=== PATIENT | female | born 1980 | race Caucasian/White ===

== ENCOUNTER 2020-02-04 21:05 | Inpatient (IN) | payer MEDICAID ==
[2020-02-04] MEDS ORDERED: ALBUTEROL SULFATE 0.083% NEB 2.5 MG/3 ML AMPUL NEB ONE (21:40)
[2020-02-04] MEDS ORDERED: IPRATROPIUM/ALBUTEROL 0.5-2.5 MG/3 ML AMPUL NEB ONE (21:40)
[2020-02-04] MEDS ORDERED: METHYLPREDNISOLONE INJ 125 MG/2 ML SDV IM ONE (21:40)
--- NOTE | 2020-02-04 21:43 | ER Document Report ---
ED Medical Screen (RME) - General Chief Complaint: Fever Stated Complaint: FEVER Time Seen by Provider: 02/04/20 21:37 Primary Care Provider: MEHREEN MENDENHALL [Primary Care Provider] - Follow up as needed - HPI Notes: 02/04/20 21:41 Patient is a 39-year-old female with a history of tobacco abuse who presents complaining of productive cough, fever, body ache, upper back pain that began 3 days ago. She is able to eat and drink without difficulty. She is urinating normally. She has been using Tylenol and Motrin for her symptoms. I have treated and performed a rapid initial assessment of this patient. A comprehensive ED assessment and evaluation of the patient, analysis of test results and completion of medical decision making process will be conducted by additional ED providers. PHYSICAL EXAMINATION: GENERAL: Well-appearing, well-nourished and in no acute distress. A&Ox4. Answers questions appropriately. Lungs: Wheezing bilaterally primarily in expiration. No retractions. - Related Data Allergies/Adverse Reactions: Penicillins Allergy (Verified 02/04/20 21:37) Physical Exam - Vital signs Vitals: Temp Pulse Resp BP Pulse Ox 98.1 F 107 H 22 H 106/67 100 02/04/20 21:20 02/04/20 21:20 02/04/20 21:20 02/04/20 21:20 02/04/20 21:20 Course - Vital Signs Vital signs: Temp Pulse Resp BP Pulse Ox 98.1 F 107 H 22 H 106/67 100 02/04/20 21:20 02/04/20 21:20 02/04/20 21:20 02/04/20 21:20 02/04/20 21:20 Doctor's Discharge - Discharge Referrals: MEHREEN MENDENHALL [Primary Care Provider] - Follow up as needed
--- NOTE | 2020-02-04 22:27 | RADIOLOGY REPORT (SQ) ---
EXAM DESCRIPTION: XR CHEST 2 VIEWS COMPLETED DATE/TME: 02/04/2020 21:37 CLINICAL HISTORY: 39 years, Female, cough COMPARISON: 02/16/2011 chest NUMBER OF VIEWS: 2 TECHNIQUE: 2 views of the chest LIMITATIONS: None. FINDINGS: The heart size is normal. Airspace opacities of the right upper lobe and right perihilar region concerning for pneumonia. No pneumothorax. Small right pleural effusion seen on the lateral view IMPRESSION: Right upper/right perihilar pneumonia. Small right effusion. Follow-up recommended copyright 2010 [employer]- All Rights Reserved
[2020-02-04 23:45] LABS: ABSOLUTE EOSINOPHILS # (AUTO) 0.1 10^3/uL (0.0-0.6); ABSOLUTE LYMPHOCYTES (AUTO) 1.8 10^3/uL (0.5-4.7); ABSOLUTE MONOCYTES (AUTO) 0.6 10^3/uL (0.1-1.4); ABSOLUTE NEUT (AUTO) 12.2 10^3/uL (1.7-8.2); BASOPHILS % (AUTO) 0.1 % (0-2); EOSINOPHILS % (AUTO) 0.4 % (0-6); HEMATOCRIT 33.6 % (36.0-47.0); HEMOGLOBIN 11.5 g/dL (12.0-15.5); LYMPHOCYTES % (AUTO) 12.4 % (13-45); MEAN CORPUSCULAR HEMOGLOBIN 30.3 pg (27.0-33.4); MEAN CORPUSCULAR HGB CONC 34.2 g/dL (32.0-36.0); MEAN CORPUSCULAR VOLUME 89 fl (80-97); MONOCYTES % (AUTO) 4.3 % (3-13); PLATELET COUNT 174 10^3/uL (150-450); RED BLOOD COUNT 3.79 10^6/uL (3.72-5.28); SEGMENTED NEUTROPHILS % (AUTO) 82.8 % (42-78); TOTAL CELLS COUNTED % (AUTO) 100 %; WHITE BLOOD COUNT 14.8 10^3/uL (4.0-10.5)
[2020-02-04 23:53] LABS: ALKALINE PHOSPHATASE 95 U/L (38-126); ANION GAP 12 (5-19); ASPARTATE AMINO TRANSFERASE 28 U/L (14-36); BILIRUBIN,DIRECT 0.4 mg/dL (0.0-0.4); BILIRUBIN,TOTAL 0.5 mg/dL (0.2-1.3); BLOOD UREA NITROGEN 21 mg/dL (7-20); CALCIUM 8.9 mg/dL (8.4-10.2); CARBON DIOXIDE 27 mmol/L (22-30); CHLORIDE 100 mmol/L (98-107); GLUCOSE 124 mg/dL (75-110); TOTAL PROTEIN 8.3 g/dL (6.3-8.2)
[2020-02-04 23:56] LABS: POTASSIUM 2.8 mmol/L (3.6-5.0)
[2020-02-05] MEDS ORDERED: LEVOFLOXACIN 750 MG TABLET PO ONE (00:20)
[2020-02-05] MEDS ORDERED: NORMAL SALINE 1000 ML 1,000 ML IV ONE (00:21)
[2020-02-05] MEDS ORDERED: POTASSIUM CHLORIDE 20 MEQ PACKET PO ONE (00:22)
[2020-02-05] MEDS ORDERED: POTASSI CL 20 MEQ/50 ML RIDER 20 MEQ/50 ML RTUPB IV ONE (00:22)
[2020-02-05] MEDS ORDERED: KETOROLAC TROMETHAMINE INJ/PF 30 MG/1 ML SDV IV ONE (00:23)
[2020-02-05] MEDS ORDERED: METHYLPREDNISOLONE INJ 125 MG/2 ML SDV ONE (00:31)
--- NOTE | 2020-02-05 00:37 | ER Document Report ---
ED General - General Chief Complaint: Breathing Difficulty Stated Complaint: FEVER Time Seen by Provider: 02/04/20 21:37 Primary Care Provider: MEHREEN MENDENHALL [NO LOCAL MD] - Follow up as needed TRAVEL OUTSIDE OF THE [place] IN LAST 30 DAYS: No - HPI Notes: 39-year-old female presenting with generalized weakness, muscular cramping, fatigue and cough productive of white sputum past 3 days. Subjective fever at home. Dyspnea upon exertion. Patient smokes about half pack of cigarettes per day. Patient has a history of IV drug abuse using heroin regularly up until October when she started outpatient Suboxone therapy under supervision of [facility]. She admits that she has injected herself with heroin at least once within the last 1 week. Patient admits that she is not eating well. She denies vomiting or diarrhea. She is on no prescription medication other than the Suboxone is not regularly being followed by physician other than her detox center. - Related Data Allergies/Adverse Reactions: Penicillins Allergy (Verified 02/04/20 21:37) Home Medications: CLONIDINE Past Medical History - General Information source: Patient - Social History Smoking Status: Current Every Day Smoker Family History: Reviewed & Not Pertinent Patient has suicidal ideation: No Patient has homicidal ideation: No Review of Systems - Review of Systems Notes: Constitutional: As per HPI. HENT: Negative for sore throat. Eyes: Negative for visual changes. Cardiovascular: As per HPI. Respiratory: As per HPI. Gastrointestinal: Negative for abdominal pain, vomiting or diarrhea. Genitourinary: Negative for dysuria. Musculoskeletal: Generalized muscular cramping. Skin: Negative for rash. Neurological: Negative for headaches, focal weakness or numbness. 10 point ROS negative except as marked above and in HPI. Physical Exam - Vital signs Vitals: Temp Pulse Resp BP Pulse Ox 98.1 F 107 H 22 H 106/67 100 02/04/20 21:20 02/04/20 21:20 02/04/20 21:20 02/04/20 21:20 02/04/20 21:20 - Notes Notes: GENERAL: Slender somewhat chronically ill-appearing female approximately stated age who is coughing. SKIN: Good turgor no rashes. HEAD: Normocephalic atraumatic. EYES: PERRLA. EOMI. Conjunctivae and sclerae clear. EARS: CANALS AND TMS CLEAR. NOSE: CLEAR. MOUTH: Moist mucosa. Good dentition. No stridor or edema. No drooling. NECK: Supple. No masses or thyromegaly. No adenopathy. Carotids 2+ without bruits. No JVD. BACK: Symmetrical with diffuse. CHEST: Scattered rhonchi and wheezes bilaterally. HEART: Regular rhythm. No murmur gallop or rub. ABDOMEN: Soft nontender without masses, organomegaly or rebound. Bowel sounds normally active. No bruits. GENITALIA: Deferred. EXTREMITIES: No edema. No calf tenderness. Cap refill less than 1.5 seconds. Dorsalis pedis and posterior tibial pulses 3+ and symmetrical. NEUROLOGICAL: GCS 15. Alert and oriented x3. Normal gait. Fluent speech. Cranial nerves II through XII intact. Sensorimotor and cerebellar normal. Normal tone. PSYCHIATRIC: Appropriate affect. Course - Re-evaluation Re-evalutation: 02/05/20 02:26 Patient is clinically dehydrated and she has a substantial pneumonia in her r ight lung with associated small pleural effusion. She is also an IV drug abuser. Her potassium level is low around 2.8. Magnesium is normal. White count was elevated around 15,000. She is tachycardic. Patient has received IV normal saline. Blood cultures were pulled. Patient was given IV Levaquin and she has been given supplemental potassium orally and IV. Findings discussed with the on-call hospitalist Dr. Campuzano who will admit. - Vital Signs Vital signs: Temp Pulse Resp BP Pulse Ox 98.7 F 123 H 19 114/59 L 99 02/05/20 01:21 02/05/20 01:21 02/05/20 01:21 02/05/20 01:21 02/05/20 01:21 - Laboratory Result Diagrams: 02/04/20 23:05 02/04/20 23:05 Laboratory results interpreted by me: 02/04/20 02/04/20 23:05 23:05 WBC 14.8 H Hgb 11.5 L Hct 33.6 L RDW 15.0 H Lymph % (Auto) 12.4 L Absolute Neuts (auto) 12.2 H Seg Neutrophils % 82.8 H Potassium 2.8 L* BUN 21 H Glucose 124 H Total Protein 8.3 H Discharge - Discharge Clinical Impression: IV drug abuse, Hypokalemia, Dehydration Pneumonia Qualifiers: Pneumonia type: due to unspecified organism Laterality: right Lung location: unspecified part of lung Qualified Code(s): J18.9 - Pneumonia, unspecified organism Condition: Fair Disposition: ADMITTED INPATIENT Admitting Provider: Tatianna Unit Admitted: Telemetry Referrals: LOCALMD,NO [NO LOCAL MD] - Follow up as needed
[2020-02-05 01:32] LABS: A TYPE INFLUENZA AG NEGATIVE (NEGATIVE); B INFLUENZA AG NEGATIVE (NEGATIVE)
[2020-02-05 01:57] LABS: URINE AMPHETAMINES SCREEN NEGATIVE; URINE BARBITURATES SCREEN NEGATIVE; URINE BENZODIAZEPINES SCREEN NEGATIVE; URINE COCAINE SCREEN NEGATIVE; URINE MARIJUANA (THC) SCREEN NEGATIVE; URINE METHADONE SCREEN NEGATIVE; URINE PHENCYCLIDINE SCREEN NEGATIVE
[2020-02-05] MEDS ORDERED: ONDANSETRON 4 MG TAB.RAPDIS PO PRN (03:04)
[2020-02-05] MEDS ORDERED: IPRATROPIUM/ALBUTEROL 0.5-2.5 MG/3 ML AMPUL NEB PRN (03:04)
[2020-02-05] MEDS ORDERED: ACETAMINOPHEN 650 MG SUPP.RECT PR PRN (03:04)
[2020-02-05] MEDS ORDERED: ONDANSETRON HCL INJ/PF 4 MG/2 ML SDV IV PRN (03:04)
[2020-02-05] MEDS ORDERED: RINGERS SOLUTION,LACTATED 1,000 ML IV SCH (03:15)
--- NOTE | 2020-02-05 03:26 | PDOC H&P ---
History of Present Illness Admission Date/PCP: 02/05/20 02:46 History of Present Illness: MARCH Gwen CALDERA is a 39 year old female with past medical history of IV drug abuse who presents after 4-day history of progressive fevers up to 104, productive cough, malaise. Patient states she last used IV heroin a few days prior to admission and follows with a Suboxone clinic stating she takes 4 mg of Suboxone in the morning and 4 mg at night. Chest x-ray here showed significant right upper and perihilar infiltrates consistent with pneumonia. WBC elevated to 14.8 and potassium down to 2.8. Started on IV Levaquin in the ED along with IV fluids and potassium replacement. Past Medical History Psychiatric Medical History: Reports: Substance Abuse Past Surgical History Past Surgical History: Reports: Section - x2 Social History Information Source: Patient Lives with: Spouse/Significant other Smoking Status: Current Every Day Smoker Frequency of Alcohol Use: None Hx Recreational Drug Use: Yes Drugs: Heroin - Advance Directive Resuscitation Status: Full Code Surrogate healthcare decision maker:: Boyfriend Family History Family History: Reviewed & Not Pertinent Parental Family History Reviewed: Yes Children Family History Reviewed: Yes Sibling(s) Family History Reviewed.: Yes Medication/Allergy Allergies/Adverse Reactions: Penicillins Allergy (Verified 02/04/20 21:37) Review of Systems All systems: reviewed and no additional remarkable complaints except as stated - See HPI for full ROS, otherwise negative Constitutional: PRESENT: chills, fever(s) Respiratory: PRESENT: cough, sputum Physical Exam Vital Signs: Temp Pulse Resp BP Pulse Ox 98.7 F 123 H 19 114/59 L 99 02/05/20 01:21 02/05/20 01:21 02/05/20 01:21 02/05/20 01:21 02/05/20 01:21 Intake & Output 02/03/20 02/04/20 02/05/20 06:59 06:59 06:59 Weight 61 kg General appearance: PRESENT: no acute distress, cooperative, well-developed, well-nourished Head exam: PRESENT: atraumatic, normocephalic Eye exam: PRESENT: conjunctiva pink Mouth exam: PRESENT: moist Respiratory exam: PRESENT: crackles, rhonchi. ABSENT: accessory muscle use, wheezes Cardiovascular exam: PRESENT: RRR. ABSENT: diastolic murmur, rubs, systolic murmur GI/Abdominal exam: PRESENT: normal bowel sounds, soft. ABSENT: distended, guarding, mass, organolmegaly, rebound, tenderness Rectal exam: PRESENT: deferred Musculoskeletal exam: PRESENT: ambulatory Neurological exam: PRESENT: alert, awake, oriented to person, oriented to place, oriented to time, oriented to situation Psychiatric exam: PRESENT: appropriate affect, normal mood Skin exam: PRESENT: dry, intact, warm Results Laboratory Results: 02/04/20 23:05 02/04/20 23:05 02/04/20 02/04/20 02/04/20 23:05 23:05 23:05 WBC 14.8 H RBC 3.79 Hgb 11.5 L Hct 33.6 L MCV 89 MCH 30.3 MCHC 34.2 RDW 15.0 H Plt Count 174 Seg Neutrophils % 82.8 H Sodium 138.8 Potassium 2.8 L* Chloride 100 Carbon Dioxide 27 Anion Gap 12 BUN 21 H Creatinine 0.65 Est GFR ( Amer) > 60 Glucose 124 H Calcium 8.9 Magnesium 2.3 Total Bilirubin 0.5 AST 28 Alkaline Phosphatase 95 Total Protein 8.3 H Albumin 4.0 Serum HCG, Qual 02/04/20 23:05 WBC RBC Hgb Hct MCV MCH MCHC RDW Plt Count Seg Neutrophils % Sodium Potassium Chloride Carbon Dioxide Anion Gap BUN Creatinine Est GFR ( Amer) Glucose Calcium Magnesium Total Bilirubin AST Alkaline Phosphatase Total Protein Albumin Serum HCG, Qual NEGATIVE Impressions: Chest X-Ray 02/04/20 21:37 IMPRESSION: Right upper/right perihilar pneumonia. Small right effusion. Follow-up recommended copyright 2010 [employer]- All Rights Reserved Assessment and Plan - Diagnosis (1) Community acquired pneumonia Qualifiers: Laterality: right Lung location: upper lobe of lung Qualified Code(s): J18.9 - Pneumonia, unspecified organism Is this a current diagnosis for this admission?: Yes Plan: Suspect gram-negative Levaquin IV, transition to oral at discharge IV fluids Respiratory culture Blood cultures Bronchial hygiene Duo nebs as needed (2) Sepsis Qualifiers: Sepsis type: sepsis due to unspecified organism Sepsis acute organ dysfunction status: without acute organ dysfunction Qualified Code(s): A41.9 - Sepsis, unspecified organism Is this a current diagnosis for this admission?: Yes Plan: Due to community-acquired pneumonia Fluids, antibiotics as above (3) Hypokalemia Is this a current diagnosis for this admission?: Yes Plan: Unclear etiology Replete with oral potassium, can also use IV if needed and patient can tolerate it (4) IV drug abuse Is this a current diagnosis for this admission?: Yes Plan: Follows with Suboxone clinic Continued home Suboxone dose 4 mg a.m. and 4 mg p.m. Last used heroin 1 week ago per patient - Time Time Spent with patient: 35 or more minutes Smoking Cessation Education: 3 to 10 minutes Medications reviewed and adjusted accordingly: Yes Anticipated discharge: Home - Inpatient Certification Medical Necessity: Significant Comorbidiites Make Outpatient Treatment Too Risky, Need Close Monitoring Due to Risk of Patient Decompensation, Need For IV Fluids, Need for IV Antibiotics
--- NOTE | 2020-02-05 03:26 | ADVANCED CARE ---
- Diagnosis (1) Community acquired pneumonia Diagnosis Current: Yes (2) Sepsis Diagnosis Current: Yes (3) Hypokalemia Diagnosis Current: Yes (4) IV drug abuse Diagnosis Current: Yes Resuscitation Status: Full Code Discussion: All aspects of CODE STATUS discussed including chest compressions, cardioversion, intubation and patient states she would like to be full code. She states she would like her boyfriend Maurilio Armando to be her M POA Time Spent: 17 minutes
[2020-02-05 04:05] LABS: ANION GAP 6 (5-19); BLOOD UREA NITROGEN 15 mg/dL (7-20); CALCIUM 8.2 mg/dL (8.4-10.2); CARBON DIOXIDE 24 mmol/L (22-30); CHLORIDE 107 mmol/L (98-107); GLUCOSE 151 mg/dL (75-110); POTASSIUM 3.5 mmol/L (3.6-5.0)
[2020-02-05] MEDS ORDERED: INFLUENZA QUAD (6MOS+) 2019-20 VAC 0.5 ML SYR IM ONE (05:15)
[2020-02-05] MEDS ORDERED: ENOXAPARIN SODIUM INJ 40 MG/0.4 ML DISP.SYRIN SUBCUT SCH (10:00)
[2020-02-05] MEDS ORDERED: VANCOMYCIN HCL INJ 1000 MG VIAL IV SCH (10:00)
[2020-02-05] MEDS ORDERED: DOCUSATE SODIUM 100 MG CAPSULE PO SCH (10:00)
[2020-02-05] MEDS: VANCOMYCIN HCL 750 MG in DEXTROSE 5%-WATER 250 ML IV SCH ×2 (10:15→18:37)
[2020-02-05] MEDS: POTASSIUM CHLORIDE 20 MEQ PACKET PO SCH ×2 (10:16→21:39)
[2020-02-05] MEDS ORDERED: BUPRENORPHINE HCL 2 MG SUBLINGUAL TABLET SL SCH (18:00)
[2020-02-06 00:19] VITALS: BP 110/84
[2020-02-06 06:36] LABS: HEPATITS B SURFACE ANTIGEN Negative (Negative)
--- NOTE | 2020-02-06 07:31 | Left Against Medical Advice ---
Against Medical Advice Admission Date/Time: 02/05/20 02:46 Primary Care Provider: Date of Patient Emigration: 02/06/20 - Diagnosis: (1) Community acquired pneumonia Is this a current diagnosis for this admission?: Yes (2) Hypokalemia Is this a current diagnosis for this admission?: Yes (3) IV drug abuse Is this a current diagnosis for this admission?: Yes (4) Sepsis Is this a current diagnosis for this admission?: Yes (5) Gram-positive cocci bacteremia Is this a current diagnosis for this admission?: Yes - Summary: Summary: Please see Admission and Progress Notes as well. DERIK CALDERA is a 39 F, who LEFT AGAINST MEDICAL ADVICE. The Patient was admitted on 02/05/20 02:46. I received a call from the nurses reporting that the patient wishes to leave AGAINST MEDICAL ADVICE. Evidently the other hospital will allow her children to visit and might be closer to home. I asked the nurse to remind the patient that 1 of the blood culture bottles had just turned positive with gram-positive cocci in clusters. She called me back and reported that this information was conveyed to the patient but the patient decided to leave AGAINST MEDICAL ADVICE anyway.
[2020-02-06] MEDS ORDERED: LEVOFLOXACIN 750 MG/D5W RTU 750 MG/150 ML RTUPB IV SCH (10:00)
[2020-02-06] MEDS ORDERED: FERROUS SULFATE 325 MG TABLET PO SCH (10:00)
[2020-02-07 11:50] LABS: HEPATITIS C VIRUS ANTIBODY >11.0 s/co ratio (0.0-0.9)
--- NOTE | 2020-02-07 16:29 | Progress Note ---
Provider Note Provider Note: patient's contact number called multiple times, now [phone], [phone], and [phone], and no responses. I am unable to reach patient regarding sputum cultures from February 04 which currently yielding MRSA, and yeast
== END 2020-02-06 01:32 | disposition left against medical advice (07) | DRG 871 ==
LOC: ER 21:05 → EH 02-05 02:46 → 3S 02-05 04:31
PROVIDERS: ADMIT Internal Medicine; ATTEND Internal Medicine
DX: A41.9 Sepsis, unspecified organism (principal); J18.9 Pneumonia, unspecified organism; F11.20 Opioid dependence, uncomplicated; E86.0 Dehydration; E87.6 Hypokalemia; F17.210 Nicotine dependence, cigarettes, uncomplicated; B95.62 Methicillin resistant Staphylococcus aureus infection as the cause of diseases classified elsewhere
CPT/HCPCS: 36415; 71046; 80048; 80053; 80074; 80307; 83735; 84703; 85025; 86701; 87040; 87070; 87077; 87186; 87205; 87804; 94640; 96365; 96366; 96372; 96375; 99284; J0571; J1650; J1885; J2930; J3370; J3480; J3490; J7030; J7060; J7620

== ENCOUNTER 2020-10-15 21:12 | Emergency (ER) | payer MEDICAID ==
--- NOTE | 2020-10-15 21:43 | ER Document Report ---
ED Medical Screen (RME) - General Chief Complaint: Skin Problem Stated Complaint: INFECTION ON HAND Time Seen by Provider: 10/15/20 21:32 Mode of Arrival: Ambulatory Information source: Patient Notes: 40-year-old female presented to ED for cellulitis from the hand all the way to well past the elbow. She does have swelling to the hand wrist and elbow. Have ordered blood cultures urine x-ray of the wrist and elbow. Patient states she does smoke 1/2 pack a day does not drink alcohol does smoke weed and is on Suboxone for addiction. She states she does not use any kind of IV injected gemma gs at this time. She states she had an abscess on her wrist and she took a knife and opened it yesterday and that is when all the swelling started. Patient is alert oriented respirations regular nonlabored speaking in full sentences. Have informed the charge nurse that this patient would need blood work and possible IV antibiotics. I have greeted and performed a rapid initial assessment of this patient. A comprehensive ED assessment and evaluation of the patient, analysis of test results and completion of medical decision making process will be conducted by an additional ED providers. TRAVEL OUTSIDE OF THE [place] IN LAST 30 DAYS: No - Related Data Allergies/Adverse Reactions: Penicillins Allergy (Intermediate, Verified 02/05/20 09:03) GENERAL SWELLING Past Medical History Past Surgical History: Reports: Hx Section - x2 Physical Exam - Vital signs Vitals: Temp Pulse Resp BP Pulse Ox 98.4 F 97 20 105/73 99 10/15/20 21:27 10/15/20 21:27 10/15/20 21:27 10/15/20 21:27 10/15/20 21:27 Course - Vital Signs Vital signs: Temp Pulse Resp BP Pulse Ox 98.4 F 97 20 105/73 99 10/15/20 21:27 10/15/20 21:27 10/15/20 21:27 10/15/20 21:27 10/15/20 21:27
--- NOTE | 2020-10-15 22:41 | RADIOLOGY REPORT (SQ) ---
EXAM DESCRIPTION: XR WRIST 3 OR MORE VIEWS COMPLETED DATE/TME: 10/15/2020 22:20 CLINICAL HISTORY: 40 years, Female, Swelling infection COMPARISON: None. NUMBER OF VIEWS: 3 TECHNIQUE: 3 view right wrist LIMITATIONS: None. FINDINGS: Negative for acute fracture or dislocation. Soft tissue swelling along the volar aspect of the wrist. No soft tissue gas. No radiopaque foreign body IMPRESSION: No acute osseous abnormality copyright 2010 [employer]- All Rights Reserved
[2020-10-15 22:48] LABS: ABSOLUTE BASOPHILS # (AUTO) 0.1 10^3/uL (0.0-0.2); ABSOLUTE EOSINOPHILS # (AUTO) 0.2 10^3/uL (0.0-0.6); ABSOLUTE MONOCYTES (AUTO) 1.2 10^3/uL (0.1-1.4); ABSOLUTE NEUT (AUTO) 9.2 10^3/uL (1.7-8.2); BASOPHILS % (AUTO) 0.5 % (0-2); EOSINOPHILS % (AUTO) 1.7 % (0-6); HEMATOCRIT 33.9 % (36.0-47.0); HEMOGLOBIN 11.5 g/dL (12.0-15.5); LYMPHOCYTES % (AUTO) 15.8 % (13-45); MEAN CORPUSCULAR HEMOGLOBIN 29.6 pg (27.0-33.4); MEAN CORPUSCULAR VOLUME 87 fl (80-97); MONOCYTES % (AUTO) 9.2 % (3-13); PLATELET COUNT 385 10^3/uL (150-450); RED CELL DISTRIBUTION WIDTH 13.8 % (11.5-14.0); SEGMENTED NEUTROPHILS % (AUTO) 72.8 % (42-78); TOTAL CELLS COUNTED % (AUTO) 100 %; WHITE BLOOD COUNT 12.6 10^3/uL (4.0-10.5)
--- NOTE | 2020-10-15 22:53 | RADIOLOGY REPORT (SQ) ---
EXAM DESCRIPTION: ELBOW RIGHT OVER 2 VIEWS [employer]: XR ELBOW 3 VIEWS Views: 3 CLINICAL HISTORY: 40 years Female; Swelling infection; cellulitis COMPARISON: None. FINDINGS: Negative for acute fracture, dislocation, or radiopaque foreign body. No joint effusion. Subcutaneous soft tissue edema is noted medial to the joint and proximal ulna. No definite soft tissue air. There is some artifact from overlying material. No lytic bone changes or periosteal reaction. IMPRESSION: 1. Nonspecific soft tissue edema 2. No acute bone findings.
[2020-10-15] MEDS ORDERED: LIDOCAINE 1%/EPINEPHRINE INJ 20 ML VIAL INJ ONE (23:02)
[2020-10-15] MEDS ORDERED: LIDOCAINE 4% CREAM 5 GM TUBE TP ONE (23:03)
[2020-10-15 23:05] LABS: ALKALINE PHOSPHATASE 81 U/L (38-126); ANION GAP 10 (5-19); ASPARTATE AMINO TRANSFERASE 27 U/L (14-36); BILIRUBIN,DIRECT 0.1 mg/dL (0.0-0.4); BILIRUBIN,TOTAL 0.4 mg/dL (0.2-1.3); BLOOD UREA NITROGEN 15 mg/dL (7-20); CALCIUM 9.3 mg/dL (8.4-10.2); CARBON DIOXIDE 26 mmol/L (22-30); CHLORIDE 100 mmol/L (98-107); GLUCOSE 89 mg/dL (75-110); POTASSIUM 3.9 mmol/L (3.6-5.0); TOTAL PROTEIN 7.8 g/dL (6.3-8.2)
[2020-10-15] MEDS ORDERED: HYDROMORPHONE HCL INJ/PF 2 MG/ML AMPULE IM ONE (23:08)
[2020-10-15] MEDS ORDERED: PROMETHAZINE HCL 25 MG TABLET PO ONE (23:08)
--- NOTE | 2020-10-15 23:08 | ER Document Report ---
ED Skin Rash/Insect Bite/Abscs - General Chief Complaint: Abscess Stated Complaint: INFECTION ON HAND Time Seen by Provider: 10/15/20 21:32 Mode of Arrival: Ambulatory TRAVEL OUTSIDE OF THE [place] IN LAST 30 DAYS: No - Related Data Allergies/Adverse Reactions: Penicillins Allergy (Intermediate, Verified 02/05/20 09:03) GENERAL SWELLING Past Medical History - General Information source: Patient - Social History Smoking Status: Current Every Day Smoker Frequency of alcohol use: None Drug Abuse: None Family History: Reviewed & Not Pertinent Patient has homicidal ideation: No Past Surgical History: Reports: Hx Section - x2 Physical Exam - Vital signs Vitals: Temp Pulse Resp BP Pulse Ox 98.4 F 97 20 105/73 99 10/15/20 21:27 10/15/20 21:27 10/15/20 21:27 10/15/20 21:27 10/15/20 21:27 Course - Vital Signs Vital signs: Temp Pulse Resp BP Pulse Ox 98.4 F 97 20 105/73 99 10/15/20 21:33 10/15/20 21:27 10/15/20 21:27 10/15/20 21:27 10/15/20 21:27 - Laboratory Result Diagrams: 10/15/20 22:23 10/15/20 22:23 Laboratory results interpreted by me: 10/15/20 22:23 WBC 12.6 H Hgb 11.5 L Hct 33.9 L Absolute Neuts (auto) 9.2 H
--- NOTE | 2020-10-15 23:35 | ER Document Report ---
ED Extremity Problem, Upper - General Chief Complaint: Abscess Stated Complaint: INFECTION ON HAND Time Seen by Provider: 10/15/20 21:32 Primary Care Provider: AKIRA HERNANDEZ MD [Primary Care Provider] - Follow up as needed Mode of Arrival: Ambulatory Notes: Patient is a 40-year-old female that comes to the emergency department for chief complaint of an infection to the right dorsal wrist. Patient states that first she had an infection on the right finger, she open to this, it drained, and then her finger completely improved and resolved, she states however she started developing an abscess over the wrist, she states yesterday she opened this after she burned a shaving razor that was brand-new, she states she cut it with this but it started having surrounding redness, swelling, and the redness started spreading up her forearm. She denies involvement of the hand or wrist, has full range of motion of the wrist and elbow, denies fever/chills. She does have a history of former IV drug abuse but denies current IV drug abuse. She denies or any daily medications. Boyfriend at bedside. TRAVEL OUTSIDE OF THE [place] IN LAST 30 DAYS: No - Related Data Allergies/Adverse Reactions: Penicillins Allergy (Intermediate, Verified 02/05/20 09:03) GENERAL SWELLING Past Medical History - General Information source: Patient - Social History Smoking Status: Current Every Day Smoker Frequency of alcohol use: None Drug Abuse: None Lives with: Family Family History: Reviewed & Not Pertinent Patient has homicidal ideation: No Past Surgical History: Reports: Hx Section - x2 - Immunizations Immunizations up to date: Yes Hx Diphtheria, Pertussis, Tetanus Vaccination: Yes Review of Systems - Review of Systems Constitutional: No symptoms reported EENT: No symptoms reported Cardiovascular: No symptoms reported Respiratory: No symptoms reported Gastrointestinal: No symptoms reported Genitourinary: No symptoms reported Female Genitourinary: No symptoms reported Musculoskeletal: See HPI Skin: See HPI Hematologic/Lymphatic: No symptoms reported Neurological/Psychological: No symptoms reported Physical Exam - Vital signs Vitals: Temp Pulse Resp BP Pulse Ox 98.4 F 97 20 105/73 99 10/15/20 21:27 10/15/20 21:27 10/15/20 21:27 10/15/20 21:27 10/15/20 21:27 - Notes Notes: GENERAL: Alert, interacts well. No acute distress. HEAD: Normocephalic, atraumatic. EYES: Pupils equal, round, and reactive to light. Extraocular movements intact. ENT: Oral mucosa moist, tongue midline. Oropharynx unremarkable. Airway patent. N LUNGS: Clear to auscultation bilaterally, no wheezes, rales, or rhonchi. No respiratory distress. Non-tender chest wall. HEART: Regular rate and rhythm. No murmur ABDOMEN: Soft, non-tender. Non-distended. EXTREMITIES: There is a abscess with a small amount of drainage noted over the right flexural surface of the distal forearm with surrounding cellulitis extending towards the distal end of the forearm and about mid forearm approximately. Normal range of motion of the wrist and elbow, normal distal neurovascular exam, normal hand exam. Normal extremities otherwise. BACK: no cervical, thoracic, lumbar midline tenderness. No saddle anesthesia, normal distal neurovascular exam. Moves all extremities in full range of motion. NEUROLOGICAL: Alert and oriented x3. Normal speech. Cranial nerves II through XII grossly intact. Strength 5/5 in all extremities. PSYCH: Normal affect, normal mood. SKIN: Warm, dry, normal turgor. No rashes or lesions noted. Course - Re-evaluation Re-evalutation: CBC shows mild leukocytosis at 12 with elevation of neutrophils but no bandemia. Chemistry unremarkable. test negative. Patient is not tachycardic, hypotensive, or febrile. On exam patient has an obvious purulent abscess with recent drainage, surrounding cellulitis extending up towards the distal forearm and down towards the mid forearm but not extending to the elbow, elbow and wrist joints are unremarkable with full range of motion, normal distal neurovascular exam. No other concerning findings. X-rays negative for foreign body. I discussed with patient. Because of her significant abscess and cellulitis I did discuss potential admission, however patient requests to attempt drainage and outpatient antibiotics. Drainage was performed, patient tolerated this reasonably well although would not allow me to completely explore afterwards, I do believe all of the purulent material was expressed. I was able to slightly pack it as much as patient would allow given the fact that I could not perform a large incision based on patient tolerance. I discussed 2-day return for recheck, elevation, antibiotics, precautions to return sooner for. Patient does state appreciation and agreement. Stable and well-appearing at time of discharge. - Vital Signs Vital signs: Temp Pulse Resp BP Pulse Ox 98.1 F 102 H 17 113/76 99 10/16/20 00:52 10/16/20 00:52 10/16/20 00:52 10/16/20 00:52 10/16/20 00:52 - Laboratory Result Diagrams: 10/15/20 22:23 10/15/20 22:23 Laboratory results interpreted by me: 10/15/20 10/15/20 22:23 22:23 WBC 12.6 H Hgb 11.5 L Hct 33.9 L Absolute Neuts (auto) 9.2 H Sodium 136.1 L Procedures - Incision and Drainage Right flexoral forearm Type: Single Anesthetic type: Other - Anecream Blade size: 11 I&D procedure: Shurclens applied, Iodoform packing placed, Sterile dressing appl ied Incision Method: Incision made by scalpel Amount/type of drainage: About 5-7 cc of purulent drainage Discharge - Discharge Clinical Impression: Abscess of forearm, right Cellulitis Qualifiers: Site of cellulitis: extremity Site of cellulitis of extremity: upper extremity Laterality: right Qualified Code(s): L03.113 - Cellulitis of right upper limb Condition: Stable Disposition: HOME, SELF-CARE Additional Instructions: We performed drainage of the abscess and we have placed you on antibiotics for this. It is important that you keep your forearm elevated above the level of your heart. Take the antibiotics. Clean the area gently with soap and water, apply clean absorbent dressing, change at least daily and as needed. It is also important that the packing be removed in 2 days, I recommend that you return in 2 days for recheck of your arm. Return sooner if you develop worsening symptoms including spreading redness, increased swelling or pain, fever/chills, vomiting. Prescriptions: Sulfamethoxazole/Trimethoprim [Bactrim Ds Tablet] 1 each PO BID #14 tablet Cephalexin Monohydrate [Keflex 500 mg Capsule] 500 mg PO QID #28 capsule Referrals: AKIRA HERNANDEZ MD [Primary Care Provider] - Follow up as needed
[2020-10-16] MEDS ORDERED: SULFAMETHOXAZOLE/TRIMETHOPRIM 800-160 MG TABLET PO ONE (00:33)
[2020-10-16] MEDS ORDERED: CEPHALEXIN 500 MG CAPSULE PO ONE (00:33)
[2020-10-16] MEDS ORDERED: HYDROCODONE/ACETAMINOPHEN 5-325 MG (6 TAB/ER DISP) PO PRN (00:36)
[2020-10-16 00:53] VITALS: BP 113/76
== END 2020-10-16 00:52 | disposition home or self-care (01) ==
LOC: ER 21:12
DX: L02.413 Cutaneous abscess of right upper limb (principal); L03.113 Cellulitis of right upper limb; F17.200 Nicotine dependence, unspecified, uncomplicated; Z88.0 Allergy status to penicillin
CPT/HCPCS: 99284; 96372; 36415; 87040; 84703; 85025; 80053; 73080; 73110; 10060; J3490 ×4; J1170